=== PATIENT | male | born 1955 | race Caucasian/White ===

== ENCOUNTER 2021-02-07 08:05 | Day surgery (SDC) | payer MEDICARE, SELFPAY ==
[2021-02-04 11:58] VITALS: BMI 30.4
--- NOTE | 2021-02-07 08:38 | ANES.PREANE2 ---
Pre-Anesthetic Assessment Pre-Anesthetic Assessment: Height/Weight: Height 1.78 m Weight 96.162 kg Preop Diagnosis: Screen Proposed Procedure: Operation Date: 02/07/21 09:45 Proposed Procedures p Colonoscopy 68463 Z12.11(Not Applicable) - Harvey Patiño MD Familial anesthetic complications: none Was Beta Pako taken within 24 hours: N/A Was Clonidine taken within 24 hours: N/A Last intake: > 8 hrs Social: Social History: Tobacco and No alcohol Comment: former ETOH - 16 years ago Exam: Pre-Anes Outpt Exam: alert, oriented x 3, clear to auscultation bilaterally and regular rate & rhythm Airway: MP: 1 Dentition: Other (none) Additional comments: full french CV/HEM: CV/HEM: DVT (unknown etiology) and HTN Anesthetic Plan: ASA status: 2 Anesthesia: MAC Risk of > 500 ml blood loss (7ml/kg in children): No PFSH Anesthesia PFSH: Medical History (Updated 01/25/21 @ 09:32 by Harvey Patiño MD) Deep venous thrombosis Family History (Updated 01/25/21 @ 09:06 by YUSEF Sim) Mother Cancer Grandmother Cancer Sister Cancer Social History (Updated 01/25/21 @ 09:06 by YUSEF Sim) Smoking and tobacco status: current every day smoker Alcohol intake: former Adopted: No Marital status: Number of children: 2 service: No History of recent travel: No Data Anesthesia Cardiac Studies: No Data to Display
--- NOTE | 2021-02-07 08:42 | W.PM.OPSFHP ---
Same Day Surgery H&P Indication for Procedure/HPI DATE OF PROCEDURE: February 07, 2021 CHIEF COMPLAINT/INDICATIONFOR SURGICAL PROCEDURE: Screening PREOP DIAGNOSIS: Screen PLANNED PROCEDRUE: Operation Date: 02/07/21 09:45 Proposed Procedures p Colonoscopy 90120 Z12.11(Not Applicable) - Harvey Patiño MD Medications/Allergies* Home Medications Medication Instructions Recorded Confirmed Type rivaroxaban 20 mg tablet 20 mg PO DAILY 01/10/21 02/04/21 History lisinopril 10 1 tab PO DAILY 01/25/21 02/04/21 History mg-hydrochlorothiazide 12.5 mg tablet Allergies/Adverse Reactions Allergy/AdvReac Type Severity Reaction Status Date / Time No Known Allergies Allergy Verified 01/25/21 09:02 Pertinent History/Comorbid Conditions* Medical History (Updated 01/25/21 @ 09:32 by Harvey Patiño MD) Deep venous thrombosis Family History (Updated 01/25/21 @ 09:06 by YUSEF Sim) Cancer Mother Grandmother Sister Social History Smoking and tobacco status: current every day smoker Alcohol intake: former Adopted: No Marital status: Number of children: 2 service: No History of recent travel: No Pertinent Exam Findings alert, oriented x 3, clear to auscultation bilaterally, regular rate & rhythm, operative site marked and procedure specific exam findings Recommendations Surgery/Procedure today Coding Level of Care Code 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
[2021-02-07 08:47] VITALS: BP 178/105; PULSE 82; RESP 18; TEMP 36.3; O2SAT 97
[2021-02-07] MEDS: sodium chloride 0.9% 1,000 ML 30 ML IV (09:00)
[2021-02-07 09:28] VITALS: BP 148/90; PULSE 76; RESP 16; TEMP 36.3; O2SAT 98
[2021-02-07 09:44] VITALS: BP 123/79; PULSE 74; RESP 18; O2SAT 100
--- NOTE | 2021-02-07 14:54 | ANE.PACU2 ---
Inpatient post-anesthesia follow up: Airway intact: Yes Vital signs: Temperature 97.4 F Pulse Rate 74 Respiratory Rate 18 Blood Pressure 123/79 Pulse Oximetry 100 Oxygen Delivery Me thod Room Air Oxygen Flow Rate 2 Fraction of Inspir ed Oxygen Hydration adequate: Yes Nausea and vomiting: No Pain level: 2 Mental status: Baseline
== END 2021-02-07 10:02 | disposition home or self-care (01) ==
PROVIDERS: PCP Family Medicine; Visit Provider Internal Medicine
PROC: 0DJD8ZZ Inspection of Lower Intestinal Tract, Via Natural or Artificial Opening Endoscopic (ICD-10-PCS; CPT 45378; principal; 2021-02-07 09:45)
DX: Z12.11 Encounter for screening for malignant neoplasm of colon (principal); F17.200 Nicotine dependence, unspecified, uncomplicated; Z86.718 Personal history of other venous thrombosis and embolism; Z79.01 Long term (current) use of anticoagulants
CPT/HCPCS: 96365; G0121; J2704; J7030